=== PATIENT | female | born 1945 | race Two or more races ===

== ENCOUNTER → 2018-04-07 | Emergency (ER) | payer OTHER ==
[~2018-04-07] MED LIST: ATACAND4 MG; TOPROL XL25 MG
== END | disposition left against medical advice (07) ==
LOC: ER 02:44
DX: Z53.20 Procedure and treatment not carried out because of patient's decision for unspecified reasons (principal)

== ENCOUNTER 2018-06-19 14:32 | Outpatient (CLI) | payer OTHER | END 2018-06-19 15:22 | disposition home or self-care (01) | LOC: RAD 501 14:32 | DX: M79.662 Pain in left lower leg (principal); M25.452 Effusion, left hip; M54.5 Low back pain ==

== ENCOUNTER → 2018-08-09 | Outpatient (CLI) | payer OTHER | END | disposition home or self-care (01) | LOC: MRI 11:04 | DX: M25.562 Pain in left knee (principal); M54.5 Low back pain; M43.17 Spondylolisthesis, lumbosacral region | CPT/HCPCS: 72148 ==

== ENCOUNTER 2018-09-04 12:26 | Outpatient (CLI) | payer OTHER | END 2018-09-04 12:38 | disposition home or self-care (01) | LOC: NUCLEAR 12:26 | DX: M81.0 Age-related osteoporosis without current pathological fracture (principal) ==

== ENCOUNTER 2019-04-11 10:19 | Outpatient (CLI) | payer OTHER | END 2019-04-11 10:26 | disposition home or self-care (01) | LOC: MAMO-SONO 10:19 | DX: Z12.31 Encounter for screening mammogram for malignant neoplasm of breast (principal); Z87.898 Personal history of other specified conditions; N63.11 Unspecified lump in the right breast, upper outer quadrant ==

== ENCOUNTER 2019-07-24 12:30 | Emergency (ER) | payer OTHER ==
[~2019-07-24] VITALS: Ht 162.6 cm; Wt 68.9 kg
== END 2019-07-24 17:32 | disposition home or self-care (01) ==
LOC: ER 12:30
DX: L03.113 Cellulitis of right upper limb (principal); M25.531 Pain in right wrist

== ENCOUNTER 2019-07-26 07:57 | Emergency (ER) | payer OTHER ==
[~2019-07-26] VITALS: Ht 165.1 cm; Wt 70.8 kg
[2019-07-26] MEDS ORDERED: XARELTO20 MG (08:05)
[2019-07-26] MEDS ORDERED: ZYRTEC10 MG PO (09:14)
[2019-07-26] MEDS ORDERED: DOXYCYCLINE HY100 M2 PO (09:14)
== END 2019-07-26 09:34 | disposition home or self-care (01) ==
LOC: ER 07:57
DX: L27.0 Generalized skin eruption due to drugs and medicaments taken internally (principal); T36.8X5A Adverse effect of other systemic antibiotics, initial encounter; Y92.89 Other specified places as the place of occurrence of the external cause

== ENCOUNTER 2019-10-06 09:55 | Emergency (ER) | payer OTHER ==
[~2019-10-06] VITALS: Ht 147.3 cm; Wt 68.0 kg
[~2019-10-06 09:55] MED LIST changes: +DOXYCYCLINE HY100 M2 PO; +XARELTO20 MG; +ZYRTEC10 MG PO
[2019-10-06] MEDS ORDERED: LANOXIN125 MCG PO (10:40)
== END 2019-10-06 12:01 | disposition home or self-care (01) ==
LOC: ER 09:55
DX: M79.601 Pain in right arm (principal)

== ENCOUNTER 2019-12-18 15:54 | Outpatient (CLI) | payer OTHER ==
[~2019-12-18 15:54] MED LIST changes: +LANOXIN125 MCG PO
== END 2019-12-18 15:56 | disposition home or self-care (01) ==
LOC: RAD 15:54
DX: J11.1 Influenza due to unidentified influenza virus with other respiratory manifestations (principal); J44.9 Chronic obstructive pulmonary disease, unspecified

== ENCOUNTER 2020-12-03 15:02 | Outpatient (CLI) | payer OTHER | END 2020-12-03 15:08 | disposition HB | LOC: RAD 15:02 | PROVIDERS: ATTEND Internal Medicine Cardiovascular Disease | DX: M47.892 Other spondylosis, cervical region (principal) ==

== ENCOUNTER 2021-08-11 12:34 | Outpatient (CLI) | payer OTHER | END 2021-08-11 12:48 | disposition home or self-care (01) | LOC: TOM 12:34 | PROVIDERS: ATTEND Internal Medicine Cardiovascular Disease | DX: G45.8 Other transient cerebral ischemic attacks and related syndromes (principal) ==

== ENCOUNTER 2022-10-04 16:03 | Outpatient (CLI) | payer OTHER | END 2022-10-04 16:10 | disposition home or self-care (01) | LOC: RAD 16:03 | PROVIDERS: ATTEND Internal Medicine Cardiovascular Disease | DX: J40 Bronchitis, not specified as acute or chronic (principal); J44.9 Chronic obstructive pulmonary disease, unspecified ==

== ENCOUNTER → 2022-11-21 | Outpatient (CLI) | payer OTHER | END | disposition home or self-care (01) | LOC: RAD 16:25 | PROVIDERS: ATTEND Internal Medicine Cardiovascular Disease | DX: J40 Bronchitis, not specified as acute or chronic (principal); J44.9 Chronic obstructive pulmonary disease, unspecified ==

== ENCOUNTER 2025-03-31 14:37 | Outpatient (CLI) | payer OTHER | END 2025-03-31 14:40 | disposition home or self-care (01) | LOC: MAMO-SONO 14:37 | PROVIDERS: ATTEND Obstetrics & Gynecology | DX: N95.0 Postmenopausal bleeding (principal); N60.11 Diffuse cystic mastopathy of right breast; N60.12 Diffuse cystic mastopathy of left breast; Z12.31 Encounter for screening mammogram for malignant neoplasm of breast ==

== ENCOUNTER 2025-04-17 09:58 | Outpatient (CLI) | payer OTHER | END 2025-04-17 10:03 | disposition home or self-care (01) | LOC: RAD 09:58 | PROVIDERS: ATTEND Obstetrics & Gynecology | DX: N95.0 Postmenopausal bleeding (principal); N81.2 Incomplete uterovaginal prolapse; N77.0 Ulceration of vulva in diseases classified elsewhere; D28.0 Benign neoplasm of vulva; Z01.810 Encounter for preprocedural cardiovascular examination; Z01.811 Encounter for preprocedural respiratory examination ==

== ENCOUNTER 2025-04-18 11:06 | Outpatient (CLI) | payer OTHER | END 2025-04-18 11:07 | disposition home or self-care (01) | LOC: NUCLEAR 11:06 | PROVIDERS: ATTEND Obstetrics & Gynecology | DX: M81.0 Age-related osteoporosis without current pathological fracture (principal) ==

== ENCOUNTER 2025-07-04 08:36 | Outpatient (CLI) | payer OTHER | END 2025-07-04 08:37 | disposition home or self-care (01) | LOC: NUCLEAR 08:36 | PROVIDERS: ATTEND Internal Medicine Cardiovascular Disease | DX: I48.0 Paroxysmal atrial fibrillation (principal) ==

== ENCOUNTER 2025-07-25 14:08 | Emergency (ER) | payer OTHER ==
[~2025-07-25] VITALS: Ht 162.6 cm; Wt 68.0 kg
[2025-07-25] MEDS ORDERED: CARDIZEM CD180 M1 PO (15:16)
[2025-07-25] MEDS ORDERED: CRESTOR40 MG PO (15:17)
[2025-07-25] MEDS ORDERED: TOPROL XL100 M1 PO (15:17)
[2025-07-25] MEDS ORDERED: FAMOtidine 10 MG/ML (4ML VIAL) IV PUSH ONE (16:30)
[2025-07-25] MEDS ORDERED: PHENAZOPYRIDINE HCL 100 MG TABLET PO ONE ×2 (16:30→16:40)
[2025-07-25] MEDS ORDERED: levoFLOXacin IN DEXTROSE 5 % 500MG/100ML PIGGYBAG IV ONE (16:30)
[2025-07-25] MEDS ORDERED: FAMOTIDINE/PF 20 MG/2 ML VIAL ONE (16:41)
[2025-07-25 17:35] LABS: BASO % 0.6 % (0.1-1.2); EOS # 0.13 (0.04-0.54); EOS % 1.1 % (0.7-7.0); LYMPH # 1.69 (1.18-3.74); LYMPH % 14.0 % (19.3-53.1); MEAN PLATELET VOLUME 9.70 fl (9.4-12.4); MONO # 1.19 (0.24-0.82); MONO % 9.9 % (4.7-12.5); NEUT # 8.90 (1.56-6.13); NEUT % 73.7 % (34.0-71.1); RED CELL DISTRIBUTION WIDTH 13.1 % (11.6-14.4)
[2025-07-25 17:58] LABS: URINE APPEARANCE Turbid; URINE BILIRRUBIN Negative (NEGATIVE); URINE BLOOD Moderate; URINE COLOR Dark Yellow; URINE GLUCOSE Negative (NEGATIVE); URINE KETONE Negative (NEGATIVE); URINE LEUKOCYTE Large; URINE NITRATE Positive; URINE UROBILINOGEN 0.2 E.U./dl
[2025-07-25 17:59] LABS: URINE EPITHELIAL CELLS 183.8 uL (0.0-38.8); URINE RBC 170.8 uL (0.0-20.8)
[2025-07-25 18:01] LABS: ALT/SGPT 23.0 U/L (12-78); AST/SGOT 24.0 U/L (15-37); BILIRUBIN TOTAL 0.41 mg/dL (0.3-1.2); BUN CREA RATIO 24.0 (7.0-25.0); CREATININE SERUM 1.07 mg/dL (0.55-1.02); GFR 49.09; GLOBULINA 3.9 G/DL (2.4-3.5); GLUCOSE FASTING 115.0 mg/dL (65-100); OSMOLALITY SERUM 289.0 MOSM/KG (275-295)
[2025-07-25 18:14] LABS: URINE BACTERIA > 9821.5 uL (0.0-1933); URINE CAST 0.00 uL (0.0-1.40); URINE PROTEIN 300 (NEGATIVE)
[2025-07-25 18:15] LABS: URINE WBC > 5548.3 uL (0.0-23.2)
[2025-07-25] MEDS ORDERED: PYRIDIUM DS200 MG PO (20:40)
[2025-07-25] MEDS ORDERED: LEVOFLOXACIN750 MG PO (20:40)
[2025-07-25] MEDS ORDERED: PEPCID AC20 MG PO (20:40)
== END 2025-07-25 22:33 | disposition home or self-care (01) ==
LOC: ER 14:08
PROVIDERS: General Practice
DX: N39.0 Urinary tract infection, site not specified (principal); E03.8 Other specified hypothyroidism; Z88.8 Allergy status to other drugs, medicaments and biological substances
CPT/HCPCS: 36415; 74176; 96365; 99284; J3490

== ENCOUNTER 2025-07-27 15:47 | Inpatient (IN) | payer OTHER ==
[~2025-07-27] VITALS: Ht 165.1 cm; Wt 68.0 kg
[~2025-07-27 15:47] MED LIST changes: +CARDIZEM CD180 M1 PO; +CRESTOR40 MG PO; +LEVOFLOXACIN750 MG PO; +PEPCID AC20 MG PO; +PYRIDIUM DS200 MG PO; +TOPROL XL100 M1 PO
--- NOTE | 2025-07-27 16:16 | NUR ---
SE RECIBE PTE ALERTA, ORIENTADA X3 Y AMBULANDO. PTE REFIERE DOLOR Y ARDOR AL ORINAR HACE 3 JEFFERSON. SE MIDEN S/V Y SE UBICA.
--- NOTE | 2025-07-27 16:41 | NUR ---
TWAN RODIRGUEZ EDUCA ACERCA DE TX ORDENADO Y REFIERE ENTENDER. SE COLECTAN MUESTRAS DE LABORATORIO MEDIANTE MEDIDAS ASEPTICAS. SE THIAGO ENVASE DE UA Y UC.
[2025-07-27 17:09] LABS: BASO % 0.7 % (0.1-1.2); EOS # 0.18 (0.04-0.54); EOS % 1.3 % (0.7-7.0); LYMPH # 2.12 (1.18-3.74); LYMPH % 14.9 % (19.3-53.1); MEAN PLATELET VOLUME 9.60 fl (9.4-12.4); MONO # 1.16 (0.24-0.82); MONO % 8.1 % (4.7-12.5); NEUT # 10.51 (1.56-6.13); NEUT % 73.7 % (34.0-71.1); RED CELL DISTRIBUTION WIDTH 13.2 % (11.6-14.4)
[2025-07-27 17:38] LABS: ALT/SGPT 23.0 U/L (12-78); AST/SGOT 28.0 U/L (15-37); BILIRUBIN TOTAL 0.4 mg/dL (0.3-1.2); BUN CREA RATIO 20.0 (7.0-25.0); CREATININE SERUM 1.18 mg/dL (0.55-1.02); GFR 43.85; GLOBULINA 4.3 G/DL (2.4-3.5); GLUCOSE FASTING 114.0 mg/dL (65-100); OSMOLALITY SERUM 290.0 MOSM/KG (275-295)
[2025-07-27 19:39] LABS: URINE APPEARANCE Turbid; URINE BILIRRUBIN Negative (NEGATIVE); URINE BLOOD Moderate; URINE COLOR Orange; URINE GLUCOSE Negative (NEGATIVE); URINE KETONE Negative (NEGATIVE); URINE LEUKOCYTE Large; URINE NITRATE Positive; URINE UROBILINOGEN 1.0 E.U./dl
[2025-07-27 19:43] LABS: URINE BACTERIA 988.7 uL (0.0-1933); URINE EPITHELIAL CELLS 8.3 uL (0.0-38.8); URINE RBC 91.8 uL (0.0-20.8)
[2025-07-27 20:10] LABS: TYPE CELLS SQUAMOUS; URINE CAST 0.15 uL (0.0-1.40); URINE PROTEIN 300 (NEGATIVE); URINE WBC > 5548.3 uL (0.0-23.2); URINE YEAST FEW /hpf
[2025-07-27] MEDS ORDERED: 0.9 % SODIUM CHLORIDE 1,000 ML IV SCH ×2 (21:15→22:00)
[2025-07-27] MEDS ORDERED: CEFEPIME HCL 1,000 MG in 0.9 % SODIUM CHLORIDE 50 ML IV SCH (21:47)
[2025-07-27] MEDS ORDERED: PHENAZOPYRIDINE HCL 100 MG TABLET PO SCH (21:48)
[2025-07-27] MEDS ORDERED: RIVAROXABAN 20 MG TABLET PO SCH (21:49)
[2025-07-27] MEDS ORDERED: ATORVASTATIN CALCIUM 10 MG TABLET PO SCH (21:50)
[2025-07-27] MEDS ORDERED: DILTIAZEM HCL 180 MG CAP.SR.24H PO SCH (21:58)
[2025-07-27] MEDS ORDERED: ACETAMINOPHEN 325 MG TABLET PO PRN (22:00)
[2025-07-27] MEDS ORDERED: PANTOPRAZOLE SODIUM 40 MG/VIAL VIAL IV SCH (22:03)
[2025-07-27] MEDS ORDERED: METOPROLOL TARTRATE 100 MG TABLET PO SCH (22:04)
[2025-07-28 02:59] VITALS: BP 130/66
[2025-07-28 03:15] VITALS: BP 130/66; O2SAT 98
[2025-07-28 03:25] LABS: INR 1.67
[2025-07-28 03:40] VITALS: BP 119/72; O2SAT 95
[2025-07-28] MEDS ORDERED: LEVOTHYROXINE SODIUM 25 MCG TABLET PO SCH (06:00)
[2025-07-28 08:00] VITALS: BP 125/77; O2SAT 97
[2025-07-28] MEDS ORDERED: AMINO ACIDS/PROTEIN HYDROLYS 30 ML BLIST.PACK PO SCH (17:00)
[2025-07-28] MEDS ORDERED: CEFTRIAXONE SODIUM 2,000 MG VIAL IV SCH (17:00)
[2025-07-28 21:38] VITALS: BP 144/81
[2025-07-29 02:00] VITALS: BP 150/73; O2SAT 94
[2025-07-29 06:12] LABS: BASO % 0.6 % (0.1-1.2); EOS # 0.29 (0.04-0.54); EOS % 2.6 % (0.7-7.0); LYMPH # 2.62 (1.18-3.74); LYMPH % 23.2 % (19.3-53.1); MEAN PLATELET VOLUME 10.00 fl (9.4-12.4); MONO # 0.89 (0.24-0.82); MONO % 7.9 % (4.7-12.5); NEUT # 7.28 (1.56-6.13); NEUT % 64.5 % (34.0-71.1); RED CELL DISTRIBUTION WIDTH 13.1 % (11.6-14.4)
[2025-07-29 06:43] LABS: ALT/SGPT 18.0 U/L (12-78); AST/SGOT 17.0 U/L (15-37); BILIRUBIN TOTAL 0.32 mg/dL (0.3-1.2); BUN CREA RATIO 24.0 (7.0-25.0); CREATININE SERUM 0.91 mg/dL (0.55-1.02); GFR 59.18; GLOBULINA 3.2 G/DL (2.4-3.5); GLUCOSE FASTING 103.0 mg/dL (65-100); OSMOLALITY SERUM 294.0 MOSM/KG (275-295)
[2025-07-29 09:20] VITALS: BP 156/100; O2SAT 97
[2025-07-29 12:19] LABS: URINE APPEARANCE Cloudy; URINE BILIRRUBIN Negative (NEGATIVE); URINE BLOOD Trace; URINE COLOR Dark Yellow; URINE GLUCOSE Negative (NEGATIVE); URINE KETONE Negative (NEGATIVE); URINE LEUKOCYTE Moderate; URINE NITRATE Positive; URINE UROBILINOGEN 1.0 E.U./dl
[2025-07-29 12:23] LABS: URINE BACTERIA 134.3 uL (0.0-1933); URINE EPITHELIAL CELLS 8.7 uL (0.0-38.8); URINE RBC 59.8 uL (0.0-20.8); URINE WBC 907.6 uL (0.0-23.2)
[2025-07-29 12:34] LABS: URINE CAST 0.00 uL (0.0-1.40); URINE PROTEIN 100 (NEGATIVE)
[2025-07-29 17:33] VITALS: BP 141/78
[2025-07-30 03:07] VITALS: BP 151/80; O2SAT 96
[2025-07-30 05:18] LABS: BASO % 0.9 % (0.1-1.2); EOS # 0.36 (0.04-0.54); EOS % 3.1 % (0.7-7.0); LYMPH # 2.54 (1.18-3.74); LYMPH % 21.8 % (19.3-53.1); MEAN PLATELET VOLUME 9.90 fl (9.4-12.4); MONO # 0.91 (0.24-0.82); MONO % 7.8 % (4.7-12.5); NEUT # 7.59 (1.56-6.13); NEUT % 65.2 % (34.0-71.1); RED CELL DISTRIBUTION WIDTH 13.2 % (11.6-14.4)
[2025-07-30 05:32] LABS: BUN CREA RATIO 22.0 (7.0-25.0); CREATININE SERUM 0.82 mg/dL (0.55-1.02); GFR 66.74; GLUCOSE FASTING 95.0 mg/dL (65-100); OSMOLALITY SERUM 294.0 MOSM/KG (275-295)
[2025-07-30 10:11] VITALS: BP 150/83; O2SAT 97
[2025-07-30 16:54] VITALS: BP 129/71
[2025-07-30] MEDS ORDERED: LACTOBACILLUS ACIDOPHILUS 1 CAP CAP PO SCH (17:00)
[2025-07-30 17:12] LABS: URINE APPEARANCE Cloudy; URINE BILIRRUBIN Small (NEGATIVE); URINE BLOOD Small; URINE COLOR Orange; URINE GLUCOSE Negative (NEGATIVE); URINE KETONE Negative (NEGATIVE); URINE LEUKOCYTE Moderate; URINE NITRATE Positive; URINE UROBILINOGEN 1.0 E.U./dl
[2025-07-30 17:15] LABS: URINE BACTERIA 45.5 uL (0.0-1933); URINE EPITHELIAL CELLS 3.2 uL (0.0-38.8); URINE RBC 72.8 uL (0.0-20.8); URINE WBC 667.0 uL (0.0-23.2)
[2025-07-30 17:33] LABS: URINE CAST 0.00 uL (0.0-1.40); URINE PROTEIN 100 (NEGATIVE)
[2025-07-31 02:37] VITALS: BP 174/70; O2SAT 95
[2025-07-31 09:31] VITALS: BP 166/84; O2SAT 97
[2025-07-31 17:10] VITALS: BP 160/78; O2SAT 98
[2025-08-01 02:52] VITALS: BP 148/92; O2SAT 95
[2025-08-01 08:56] VITALS: BP 151/81
== END 2025-08-01 15:44 | disposition home or self-care (01) | DRG 690 ==
LOC: ER 15:48 → MEDI 21:50
PROVIDERS: Internal Medicine; Internal Medicine Infectious Disease; Preventive Medicine Public Health & General Preventive Medicine; ADMIT Internal Medicine; ATTEND Internal Medicine
DX: N39.0 Urinary tract infection, site not specified (principal); D72.829 Elevated white blood cell count, unspecified; I48.91 Unspecified atrial fibrillation; I27.20 Pulmonary hypertension, unspecified; E03.9 Hypothyroidism, unspecified; N95.2 Postmenopausal atrophic vaginitis; N81.10 Cystocele, unspecified